=== PATIENT | male | born 1955 | race Caucasian/White ===

== ENCOUNTER 2016-07-31 16:01 | Inpatient (IN) | payer OTHER ==
--- NOTE | ~2016-07-31 | HP ---
History And Physical [address] [place]. [address] NAME: TORITO TERRELL : 55 STATUS : ADM IN [facility]#: [id number] AGE: 61 ADM/REG DATE : 07/31/16 MR#: [id number] REPORT SERV DATE: 07/31/16 DICTATED BY: MICHAEL STARKS DATE: 07/31/16 REPORT STATUS : Draft TRANSCRIBED BY: MODL DATE: 07/31/16 DATE OF ADMISSION: 07/31/2016 The patient transferred from [facility] with cardiac arrest. HISTORY OF PRESENT ILLNESS: The patient was apparently at home, had loss of consciousness. By the ER doctor's report, the patient had bystander CPR and EMS was activated. He had CPR for about 10 minutes before EMS arrived. Then he was given epinephrine, but the initial rhythm is unclear at this point, but did have return of spontaneous circulation. At one point, the patient developed a wide-complex tachycardia that appears to be consistent with a ventricular tachycardia rate of 158 beats per minute. He received a shock and was intubated. He was transferred from [facility] here for evaluation. He arrives on dopamine at 20 mcg/minute with a systolic blood pressure of approximately 100. The bedside echocardiography demonstrates cardiomyopathy. PAST MEDICAL HISTORY: Dilated cardiomyopathy with an ejection fraction of 35% to 45% by an echo March 2016, COPD, smoker, apparently on home oxygen. PRESENT MEDICATIONS: Albuterol, cetirizine fluticasone, furosemide, lorazepam, naproxen, potassium, sildenafil, tiotropium, Zantac, tramadol, trazodone. Other past medical history is anxiety. SOCIAL HISTORY: Ongoing smoking. FAMILY HISTORY: Unable to be comprehensively obtained. REVIEW OF SYSTEMS: Unable to be comprehensively obtained. PHYSICAL EXAMINATION: VITAL SIGNS: Heart rate 112 beats per minute, blood pressure 100 to 105 systolic over 70 to 75 diastolic, respiratory rate is 14, breathing with ventilator. GENERAL: Appears stated age, no distress. EYES: Sclerae anicteric, no arcus senilis. MOUTH: Oral mucosa moist, lips acyanotic. NECK: Jugular venous pressure normal, no carotid bruits. LUNGS: Have diffusely diminished breath sounds. Scattered rhonchi. CARDIAC: Irregular rhythm. Heart sounds somewhat distant. ABDOMEN: Protuberant, but soft. EXTREMITIES: No edema. SKIN: Warm and dry. NEURO/PSYCH: Sedated. STUDIES: ECG is sinus tachycardia 104 beats per minute with an inferior infarct pattern and poor R-wave progression. History And Physical [address] [address] NAME: TORITO TERRELL : 55 STATUS : ADM IN [facility]#: [id number] AGE: 61 ADM/REG DATE : 07/31/16 MR#: [id number] REPORT SERV DATE: 07/31/16 DICTATED BY: MICHAEL STARKS DATE: 07/31/16 REPORT STATUS : Draft TRANSCRIBED BY: SAMRI DATE: 07/31/16 IMPRESSIONS: 1. Kqk-gv-zfndahxa cardiac arrest. 2. Dilated cardiomyopathy. 3. Evidence of inferior infarct on ECG as well as possible anterior infarct. RECOMMENDATION: Respiratory ventilatory support. Blood pressure support. Obtain echocardiogram. Follow neuro status. Consider coronary arteriography. I have discussed this with the invasive doctor. DONA/SAMIR Michael Starks M.D. / [id number] CC: Michael Starks M.D.
--- NOTE | ~2016-07-31 | EEG ---
Electroencephalogram [address] [place]. [address] NAME: TORITO TERRELL : 55 STATUS : ADM IN PAT#: [id number] AGE: 61 ADM/REG DATE : 07/31/16 MR#: [id number] REPORT SERV DATE: 08/04/16 DICTATED BY: CHASE SURESH DATE: 08/04/16 REPORT STATUS : Draft TRANSCRIBED BY: MODL DATE: 08/04/16 EEG NUMBER: [id number]. REASON FOR EE. Status post cardiopulmonary arrest. 2. Status epilepticus. 23 surface electrodes, 10-20 international placement was used. The patient was noted to be unresponsive-comatose. Continuous markedly abnormal activity was noted throughout the EEG recording. Paroxysmal high voltage spike and sharp activity, polyspike activity, and spike and slow wave activity was seen continuously. Bilaterally synchronous high voltage paroxysmal epileptiform discharges were most prominent in the anterior head regions. Biphasic and triphasic configuration waveforms were also noted. Intermittent burst suppression pattern was seen. As compared to previous study done on 08/02/2016, there was no significant change of the patient's EEG. Despite four anticonvulsants, the patient continues to have markedly abnormal EEG. Medications used were fosphenytoin, Depakote, Keppra and Vimpat in appropriate loading doses and maintenance doses. IMPRESSION: MARKEDLY ABNORMAL EEG CHARACTERIZED BY PRESENCE OF CONTINUOUS STATUS EPILEPTICUS. 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 PROGNOSIS IS POOR. CLINICAL CORRELATION IS RECOMMENDED. MALCOLM/SAMIR Chase Suresh MD / [id number] CC: Brittany Ramirez MD
--- NOTE | ~2016-07-31 | DS ---
Discharge Summary [address] [place]. [address] NAME: TORITO TERRELL : 55 STATUS : DIS IN PAT#: [id number] AGE: 61 ADM/REG DATE : 07/31/16 MR#: [id number] REPORT SERV DATE: 08/13/16 DICTATED BY: MICHAEL FOURNIER DATE: 08/12/16 REPORT STATUS : Draft TRANSCRIBED BY: MODL DATE: 08/12/16 Data Collection from hospitalization DISCHARGE DIAGNOSES: 1. Gbc-zq-cthhtifj cardiac arrest. 2. Seizure activity. 3. Ischemic cardiomyopathy/cardiogenic shock. 4. Acute kidney injury. 5. Respiratory failure. 6. DNR code status. 7. Tobacco use. CONSULTATIONS: 1. Irvin Heard M.D. 2. Dante Jennings MD. 3. Kevon Castle M.D. PROCEDURES: 1. Cardiac catheterization, 07/31/2016. 2. Electroencephalogram, 08/02/2016. 3. Electroencephalogram 08/03/2016. DISPOSITION: [facility]; [place], [place]. HOSPITAL COURSE: This is a 61-year-old man, who was transferred from [facility] with cardiac arrest. Apparently, the patient was at home and had loss of consciousness. The patient had bystander CPR and EMS was activated. The patient underwent CPR for about 10 minutes before EMS arrived. He was being given epinephrine, but the initial rhythm was unclear at this point, but he did have return of spontaneous circulation. At one point, the patient developed wide-complex tachycardia that appeared to be consistent with ventricular tachycardia at a rate of 158 beats per minute. He received a shock and was intubated. He was transferred from [facility] here for evaluation. He arrived on dopamine and had a systolic blood pressure of approximately 100. Bedside echocardiography demonstrated cardiomyopathy. He was admitted to the hospital at this time for further evaluation and treatment. Upon admission, EKG revealed sinus tachycardia at 104 beats per minute with an inferior infarct pattern and poor R-wave progression. Respiratory ventilatory support was being provided as well as blood pressure support. We would obtain an echocardiogram. We would consider coronary arteriography. The patient was seen by Dr. Irvin Heard. He was going to continue to monitor the ventilator, a PICC line was going to be placed, as well as possible arterial line. The patient had decreased breath sounds and occasional wheeze at this time. He was orally intubated. He does have a history of asthma. He was taken to the cardiac landscaping and groundskeeping laborer where he underwent the above-mentioned procedure by Dr. Nahum Gonzalez, he tolerated this well, and there were no complications. A PICC line was inserted. The patient was felt to have respiratory failure and cardiogenic shock. Levophed was continued. The following day, the patient remained intubated and unresponsive. Telemetry revealed sinus rhythm. Catheterization had revealed ejection fraction of 15% and three-vessel Discharge Summary [address] [address] NAME: TORITO TERRELL : 55 STATUS : DIS IN PAT#: [id number] AGE: 61 ADM/REG DATE : 07/31/16 MR#: [id number] REPORT SERV DATE: 08/13/16 DICTATED BY: MICHAEL FOURNIER DATE: 08/12/16 REPORT STATUS : Draft TRANSCRIBED BY: SAMIR DATE: 08/12/16 occlusion. The patient does have ischemic cardiomyopathy. He was seen in consultation by Dr. Dante Jennings regarding anoxic encephalopathy, myoclonic and seizure-like activity. Overnight, he had been placed on mild propofol drip secondary to myoclonic-like jerking, especially in the bilateral upper extremities. Since then, the patient had no significant response, occasional eye blinking was noted, but no opening. At the time of evaluation, there was no spontaneous movement of upper or lower extremities. In addition, the patient was restarted on Levophed since early that morning secondary to blood pressure issues. In addition, the patient was also found to have oliguria since hospital arrival. The patient was currently on hypothermia protocol. At 1 a.m., we would begin the rewarming process. Prognosis was currently guarded. An EEG was requested as well as a CT scan of the brain. Once the patient off the hypothermia, Keppra was going to begin for the myoclonus-like activity. No sedating medications were recommended once hypothermia protocol was over. A trial of high-dose loop diuretic was going to be performed. The patient was also seen by Dr. Kevon Castle. The patient was felt to have anuric acute kidney injury after out-of- hospital cardiac arrest resuscitation and cardiogenic shock as well as IV contrast. Creatinine level was 1.58. The ICU nurse saw bright red blood suctioned from the endotracheal tube. She also had some nonsustained ventricular tachycardia. Keppra was continued. Echocardiogram was performed. Blood cultures were pending. An electroencephalogram was performed, this was a markedly abnormal EEG characterized by the presence of continuous status epilepticus. The administration of multiple anticonvulsants attenuated the epileptiform activity to some degree, however, did not eliminate. The patient continued in a comatose state. The pattern may be consistent with post-anoxic encephalopathy damage. Repeat EEG in 24 hours was recommended. Anticonvulsants were continued as well as Depakote. On 08/03/2016, he episodically had the seizure activity, he remained unresponsive. He was felt to have apparent anoxic brain injury. Repeat EEG was performed, this was markedly abnormal characterized by the presence of continuous status epilepticus. 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 Prognosis was felt to be poor. He was having continuous seizure activity. His poor prognosis was discussed with his , who was considering DNR code status with withdrawal of care. The following day, he had had no improvement. He is now DNR code status. The patient's condition continued to decline. Comfort measures were begun. Later that evening, the patient was found without blood pressure, pulse, or respirations. He was pronounced at 10 p.m. and released to the above-mentioned home. Information collected by: Zahraa Cote I submit the above information as my discharge summary. PRASAD/SAMIR Michael Fournier M.D. / [id number] CC: Discharge Summary [address] [address] NAME: TORITO TERERLL : 55 STATUS : DIS IN [facility]#: [id number] AGE: 61 ADM/REG DATE : 07/31/16 MR#: [id number] REPORT SERV DATE: 08/13/16 DICTATED BY: MICHAEL FOURNIER DATE: 08/12/16 REPORT STATUS : Draft TRANSCRIBED BY: SAMIR DATE: 08/12/16 Michael Fournier M.D. MD Kevon Self Jr, M.D. Dante Jennings MD
--- NOTE | ~2016-07-31 | CN ---
Consultation Report [facility] [address] [place]. [address] NAME: TORITO TERRELL : 55 STATUS : ADM IN [facility]#: [id number] AGE: 61 ADM/REG DATE : 07/31/16 MR#: [id number] REPORT SERV DATE: 08/01/16 DICTATED BY: PAM HEARD DATE: 07/31/16 REPORT STATUS : Draft TRANSCRIBED BY: MODL DATE: 07/31/16 DATE OF CONSULTATION: 07/31/2016 TIME: 1630 hours. Admitted to the MICU by Cardiology. The patient is a 61-year-old white male, who had a witnessed arrest at home. CPR for 10 minutes. He was taken to a [facility], where he required defibrillation, placed on dopamine and transported here by helicopter. He was chemically paralyzed there, he is on 20 mcg of dopamine. PAST MEDICAL HISTORY: As far as is known from previous office records show past medical history for asthma, COPD, enlarged heart, and anxiety. PAST SURGICAL HISTORY: Status post appendectomy, knee surgery, right arm. SOCIAL HISTORY: He decreased smoking from two- to one-pack per day. FAMILY HISTORY: Noncontributory. IMMUNIZATION: History of noncontributory. No history of falls. ALLERGIES: NONE KNOWN. HOME MEDICATIONS: Include albuterol sulfate inhaler, aripiprazole 10 mg oral daily, lorazepam oral as needed, naproxen 500 mg oral tablet daily, Zantac 300 mg oral twice a day, sildenafil 50 mg oral as needed, Spiriva 18 mcg inhalation daily, tramadol oral, trazodone oral, Lasix 20 mg daily, KCl 10 mEq daily, cetirizine 10 mg daily, fluticasone 50, and mometasone inhalation 220. PHYSICAL EXAMINATION: VITAL SIGNS: Blood pressure 110/20 on dopamine, heart rate is 111. GENERAL: The patient is afebrile. He is chemically paralyzed. HEENT: Head is normocephalic. Orally intubated. NECK: Supple. CHEST: Decreased breath sounds. Occasional wheeze. CARDIAC: S1 and S2. PMI is displaced laterally. ABDOMEN: Soft and nontender. No masses or organomegaly. Pulses palpable. NEUROLOGIC: Could not be tested at this point in time. LABORATORY DATA: Pending. IMPRESSION: Status post cardiac arrest requiring defibrillation, now on pressors, rhythm unknown. Consultation Report [id number] [place]. [address] NAME: TORITO TERRELL : 55 STATUS : ADM IN PAT#: [id number] AGE: 61 ADM/REG DATE : 07/31/16 MR#: [id number] REPORT SERV DATE: 08/01/16 DICTATED BY: PAM HEARD DATE: 07/31/16 REPORT STATUS : Draft TRANSCRIBED BY: MODL DATE: 07/31/16 PLAN: Continue to monitor ventilator. Place PICC line, possible arterial line with Cardiology input. RP/GABRIELAL Pam Heard M.D. / [id number] CC: Michael Fournier M.D.
--- NOTE | ~2016-07-31 | EEG ---
Electroencephalogram [address] [place]. [address] NAME: TORITO TERRELL : 55 STATUS : ADM IN PAT#: [id number] AGE: 61 ADM/REG DATE : 07/31/16 MR#: [id number] REPORT SERV DATE: 08/03/16 DICTATED BY: CHASE SURESH DATE: 08/03/16 REPORT STATUS : Draft TRANSCRIBED BY: MODRubén DATE: 08/03/16 LOCATION OF THE PATIENT: MICU bed #9. REQUESTING PHYSICIANS: Keena Mary M.D. and Dr. Chase Suresh M.D. INTERPRETING PHYSICIAN: Chase Suresh M.D., Neurology. REASON FOR EEG: Status post cardiopulmonary arrest, unresponsiveness. 23-surface electrodes, 10 to 20 international placement was used. The patient was noted to be comatose during the entire study. Total of 2 hours and 9 minutes of recording was obtained. The EEG was monitored visually at the patient's bedside. The responsiveness to different anticonvulsants was monitored. At the beginning of the recording, continuous epileptiform activity was observed. This activity consisted of spikes and poly spikes and slow wave forms of approximately 4-5 cycles per second. This epileptiform activity was of high voltage involving all the leads utilized in anterior and posterior and central portions. The patient did not respond to verbal or painful stimuli. No change was monitored. The patient appeared motionless, intermittently myoclonic, fine jerking was observed. The patient's pupils were dilated. The patient was given 2000 mg of IV Keppra and 1500 mg of IV Depakote and 2 mg of IV Ativan. The epileptiform activity appeared to show decrease in frequency and amplitude, however, abnormal activity continued throughout the recording despite the use of IV anticonvulsants. The loading dose of fosphenytoin was added monitoring the patient's blood pressure and response. The patient was on propofol, which was intermittently lowered and discontinued. No significant changes were observed. Intermittent burst suppression pattern was also seen. The burst suppression pattern lasted between 1 and 3 seconds. No significant asymmetry of cerebral activity was noted. The patient remained comatose throughout this study. IMPRESSION: MARKEDLY ABNORMAL EEG CHARACTERIZED BY PRESENCE OF CONTINUOUS STATUS EPILEPTICUS. THE ADMINISTRATION OF MULTIPLE ANTICONVULSANTS ATTENUATED THE EPILEPTIFORM ACTIVITY TO SOME DEGREE, HOWEVER, DID NOT ELIMINATE. THE PATIENT CONTINUED IN THE COMATOSE STATE. PATTERN MAY BE CONSISTENT WITH POSTANOXIC ENCEPHALOPATHY DAMAGE. REPEAT EEG IN 24 HOURS IS RECOMMENDED. MALCOLM/SAMIR Chase Suresh MD / [id number] CC: Brittany Ramirez MD
--- NOTE | ~2016-07-31 | CN ---
Consultation Report [facility] [address] [place]. [address] NAME: TORITO TERRELL : 55 STATUS : ADM IN PAT#: [id number] AGE: 61 ADM/REG DATE : 07/31/16 MR#: [id number] REPORT SERV DATE: 08/01/16 DICTATED BY: DATE: REPORT STATUS : Draft TRANSCRIBED BY: MODL DATE: 08/01/16 NEUROLOGY CONSULTATION DATE OF CONSULTATION: 08/01/2016 REASON FOR CONSULT: Anoxic encephalopathy, myoclonus, seizure-like activity. HISTORY OF PRESENT ILLNESS: This is a 61-year-old male, who presented to [facility] as an outside hospital transfer, secondary to cardiac arrest. The patient was noted to have a cardiac arrest by family member with by bystander CPR for about 10 minutes prior to the EMS. The patient received epinephrine, as well as the noted to have wide-complex tachycardia concerning for ventricular tachycardia, where the patient received electric shock. The patient was subsequently intubated and transferred to [facility] for evaluation, with the patient placed on pressors and transferred to [facility] for further management. The patient does have an echocardiogram at bedside upon arrival which demonstrated cardiomyopathy. Overnight, the patient was placed on mild propofol drip, secondary to myoclonic like jerking, especially in the bilateral upper extremity. The patient since then was noted to have no significant response, occasional eye blinking was noted, but no eye opening. At the time of evaluation, no spontaneous movement of upper or lower extremities. The patient, in addition was restarted on Levophed since early this morning, secondary to blood pressure issue. In addition, the patient was also noted to have oliguria since the hospital arrival. Prior to the hospitalization no reports of recent illness was noted. The patient is currently on the hypothermia protocol which will be stopped at 01:00 a.m. on 08/02/2016, the patient will start rewarming process. PAST MEDICAL HISTORY: Significant for cardiomyopathy with EF of 35% to 45% by echo in March 2016. The patient also has had history of COPD, continued to smoke, and was noted to be on home oxygen. The patient in addition was also noted to have a history of anxiety in the past. SOCIAL HISTORY: He was noted to have ongoing smoking per medical record. No report of alcohol or illicit drug usage was noted. FAMILY HISTORY: Unable to be obtained, secondary to the patient's current mental status. REVIEW OF SYSTEMS: Unable to be obtained, secondary to the patient's current mental status. CURRENT MEDICATION: Consists of a propofol drip, as well as the Levophed drip, Protonix. The patient received some muscle relaxer prior to hospital transfer for helicopter ride, but after hospital arrival the patient has not received any paralytics or muscle relaxant. PHYSICAL EXAMINATION: VITAL SIGNS: At the time of evaluation, the patient overnight was noted to have vital signs Consultation Report [address] [place]. [address] NAME: TORITO TERRELL : 55 STATUS : ADM IN [facility]#: [id number] AGE: 61 ADM/REG DATE : 07/31/16 MR#: [id number] REPORT SERV DATE: 08/01/16 DICTATED BY: DATE: REPORT STATUS : Draft TRANSCRIBED BY: MODL DATE: 08/01/16 with T-max of 96.8, heart rate of 78 to 106, respiration of 12 to 34, and blood pressure of 78 to 124/52 to 91. GENERAL: The patient is well-developed, well-nourished, in no acute distress. CARDIOVASCULAR: Regular rate and rhythm. No carotid bruits were otherwise noted. PULMONARY: Clear to auscultation bilaterally. NEUROLOGIC: The patient is comatose, intubated, nonverbal, and not following commands. Propofol sedation was on during the evaluation. Cranial nerves 2 through 12, pupils equal, round, sluggishly, reactive. At the time of evaluation no horizontal eye movement. No blink to threat. No corneal response was otherwise noted. No response to painful stimulation at time of evaluation. The patient does not demonstrate significant gag reflex at the time of evaluation. The patient otherwise demonstrated no clear myoclonus jerk on evaluation. No spontaneous upper or lower extremity movement was observed. The patient does demonstrate some reflexes in the right upper extremity. Otherwise, and no grimace, withdrawal, or posturing to noxious stimulation in all four extremities. Gait and cerebellar examination was unable to be evaluated, secondary to the patient's mental status. LABORATORY DATA: At the time of evaluation, the patient was noted to have white blood cell count of 12.3, hemoglobin of 12.4, hematocrit of 35.3, and platelet count of 182. Chemistry panel; sodium 134, potassium of 4.4, chloride 109.8, bicarb 24, BUN of 11, creatinine of 1.58, glucose of 142, calcium of 8.2, magnesium 1.8. Troponin of 2.72. At time of evaluation, serum ABG this morning demonstrated pH of 7.39, pCO2 of 40, PO2 of 70, bicarb of 23.7, O2 saturation of 93.6. No neuro imaging was otherwise obtained at the time of evaluation. IMPRESSION: Anoxic encephalopathy. The patient is currently undergoing hypothermia protocol, with the patient noted to have myoclonus like activity overnight, and started on mild propofol drip. The patient in addition was also on Levophed for hypotension, secondary to presence of myoclonus after initial cardiac event. Prognosis is currently guarded. We will obtain EEG, as well as CT scan of the brain once the patient is off the hypothermia. Meanwhile, we will start the patient on Keppra 1000 mg IV b.i.d. for myoclonus like activity. We will recommend no sedating medications once hypothermia protocol is over. RECOMMENDATION: 1. Please keep the patient under no sedation after hypothermia protocol. 2. We will start the patient on Keppra 1000 mg IV b.i.d. 3. EEG to be performed on 08/02/2016. 4. CT scan of the brain to be performed on 08/02/2016. 5. Prognosis guarded. [facility]/MODL Dante Jennings MD Consultation Report [address] [address] NAME: TORITO TERRELL : 55 STATUS : ADM IN [facility]#: [id number] AGE: 61 ADM/REG DATE : 07/31/16 MR#: [id number] REPORT SERV DATE: 08/01/16 DICTATED BY: DATE: REPORT STATUS : Draft TRANSCRIBED BY: MODL DATE: 08/01/16 / [id number] CC: Brittany Ramirez MD
[2016-07-31 16:39] LABS: BASOPHILS 0.1 %; BASOPHILS ABSOLUTE 0.01 10/3/uL (0.0-0.16); EOSINOPHILS 0.5 %; EOSINOPHILS ABSOLUTE 0.04 10/3/uL (0.0-0.53); HEMATOCRIT 38.2 % (40.0-51.0); HEMOGLOBIN 13.4 g/dL (13.6-17.8); IMMATURE GRANULOCYTES 0.8 %; IMMATURE GRANULOCYTES ABSOLUTE 0.07 10/3/uL (0.0-0.11); LYMPHOCYTES 9.7 %; LYMPHOCYTES ABSOLUTE 0.81 10/3/uL (0.67-4.30); MANUAL DIFF NO %; MEAN CORPUS HGB CONC 35.1 g/dL (32.0-36.0); MEAN CORPUSCULAR HEMOGLOB 30.9 pg (26.0-34.0); MONOCYTES 1.9 %; MONOCYTES ABSOLUTE 0.16 10/3/uL (0.21-1.20); NEUTROPHILS ABSOLUTE 7.27 10/3/uL (2.02-8.40); PLATELET COUNT 169 10/3/uL (150-400); RBC DISTRIBUTION WIDTH 14.3 % (12.0-16.0); RED CELL COUNT 4.34 10/6/uL (4.7-6.1); WHITE BLOOD CELLS 8.4 10/3/uL (4.5-10.5)
[2016-07-31 16:55] LABS: INTERNATIONAL NORMAL RATI 1.6 UNITS (-); PROTIME (NOT ORD) 18.7 SEC (12.0-14.5)
[2016-07-31 16:56] LABS: A/G RATIO 1.4 (0.7-1.9); ALBUMIN 3.7 G/DL (3.5-5.0); ALKALINE PHOSPHATASE 288 U/L (45-117); BUN (BLOOD UREA NITROGEN) 8 MG/DL (6-23); CALCIUM, SERUM 8.1 MG/DL (8.5-10.4); CHLORIDE, SERUM 95 MMOL/L (96-112); CO2 (CARBON DIOXIDE) 27 MMOL/L (24-34); CPK 163 U/L (0-200); CREATININE 1.37 MG/DL (0.70-1.30); GFR AFRICAN AMERICAN 64 ML/MIN (>=60); GFR NON AFRICAN AMERICAN 55 ML/MIN (>=60); GLOBULIN 2.7 G/DL (2.5-4.1); GLUCOSE, SERUM 134 MG/DL (60-99); PHOSPHORUS, SERUM 3.6 MG/DL (2.5-4.5); SGOT(AST) 62 U/L (5-40); SGPT(ALT) 49 U/L (5-65); SODIUM, SERUM 136 MMOL/L (135-148); TOTAL BILIRUBIN 1.2 MG/DL (0-1.2); TOTAL PROTEIN 6.4 G/DL (6.0-8.5)
[2016-07-31 17:25] LABS: PROCALCITONIN 0.05 ng/mL (<0.5)
[2016-07-31 17:28] LABS: ALLENS TEST Pos; BE (BASE EXCESS) 1.4 MEQ/L (0 +/- 2.5); CARBOXYHEMOGLOBIN 0.9 % (0-3); HEMOBLOGIN CONTENT 13.5 G/DL (14-18); INSTRUMENT SERIAL # 8083; METHEMOGLOBIN 0.4 % (0-3); O2 CONTENT 19.4 VOL% (18-24); PCO2 (CO2 TENSION) 41 MMHG (35-45); PO2 (O2 TENSION) 302 MMHG (79-93); SAMPLE Arterial; TIDAL VOLUME 600 ML; pH 7.42 (7.37-7.43)
[2016-07-31] MEDS ORDERED: NAP500 PO (19:13)
[2016-07-31] MEDS ORDERED: ZANTAC300 MG PO (19:14)
[2016-07-31] MEDS ORDERED: SPIRIVA INH (19:16)
[2016-07-31] MEDS ORDERED: VENTOLIN HFA INH (19:18)
[2016-07-31] MEDS ORDERED: ABILIFY10 PO (19:19)
[2016-07-31] MEDS ORDERED: VIAGRA50 MG (19:19)
[2016-07-31] MEDS ORDERED: LORAZEPAM (19:20)
[2016-07-31] MEDS ORDERED: TRAMADOL (19:21)
[2016-07-31] MEDS ORDERED: TRAZODONE (19:22)
[2016-07-31 19:25] LABS: TROPONIN I 0.26 NG/ML (<0.05)
[2016-08-01 03:21] LABS: CARBOXYHEMOGLOBIN 0.8 % (0-3); HCO3 (ACTUAL BICARBONATE) 23.7 MEQ/L (23-27); INSTRUMENT SERIAL # 8083; METHEMOGLOBIN 0.2 % (0-3); PCO2 (CO2 TENSION) 40 MMHG (35-45); PO2 (O2 TENSION) 70 MMHG (79-93); pH 7.39 (7.37-7.43)
[2016-08-01 03:22] LABS: HEMOBLOGIN CONTENT 13.2 G/DL (14-18); MODE CMV; O2 CONTENT 17.2 VOL% (18-24); OPERATOR ID 16503; SAMPLE Arterial; TIDAL VOLUME 600 ML
[2016-08-01 05:14] LABS: BASOPHILS 0.1 %; BASOPHILS ABSOLUTE 0.01 10/3/uL (0.0-0.16); EOSINOPHILS 0 %; HEMATOCRIT 35.3 % (40.0-51.0); HEMOGLOBIN 12.4 g/dL (13.6-17.8); IMMATURE GRANULOCYTES 0.3 %; IMMATURE GRANULOCYTES ABSOLUTE 0.04 10/3/uL (0.0-0.11); LYMPHOCYTES 5.5 %; LYMPHOCYTES ABSOLUTE 0.68 10/3/uL (0.67-4.30); MEAN CORPUS HGB CONC 35.1 g/dL (32.0-36.0); MEAN CORPUSCULAR HEMOGLOB 30.8 pg (26.0-34.0); MEAN CORPUSCULAR VOLUME 87.6 fL (80-100); MEAN PLATELET VOLUME 9.9 fL (9.2-13.0); MONOCYTES 5.3 %; MONOCYTES ABSOLUTE 0.65 10/3/uL (0.21-1.20); NEUTROPHILS 88.8 %; NEUTROPHILS ABSOLUTE 10.93 10/3/uL (2.02-8.40); PLATELET COUNT 182 10/3/uL (150-400); RBC DISTRIBUTION WIDTH 14.7 % (12.0-16.0); RED CELL COUNT 4.03 10/6/uL (4.7-6.1)
[2016-08-01 05:21] LABS: MANUAL DIFF NO %; WHITE BLOOD CELLS 12.3 10/3/uL (4.5-10.5)
[2016-08-01 05:22] LABS: BUN (BLOOD UREA NITROGEN) 11 MG/DL (6-23); CALCIUM, SERUM 8.2 MG/DL (8.5-10.4); CHLORIDE, SERUM 98 MMOL/L (96-112); CO2 (CARBON DIOXIDE) 24 MMOL/L (24-34); CREATININE 1.58 MG/DL (0.70-1.30); GFR AFRICAN AMERICAN 54 ML/MIN (>=60); GFR NON AFRICAN AMERICAN 47 ML/MIN (>=60); GLUCOSE, SERUM 142 MG/DL (60-99); PHOSPHORUS, SERUM 4.4 MG/DL (2.5-4.5); POTASSIUM, SERUM 4.4 MMOL/L (3.5-5.3); SODIUM, SERUM 134 MMOL/L (135-148)
[2016-08-01 06:29] LABS: A/G RATIO 1.1 (0.7-1.9); ALBUMIN 3.1 G/DL (3.5-5.0); CPK (IF ELEVATED MB BANDS) 260 U/L (0-200); DIRECT BILIRUBIN 0.5 MG/DL (0.0-0.4); GLOBULIN 2.7 G/DL (2.5-4.1); INDIRECT BILIRUBIN(NOT ORDER) 0.6 MG/DL (0.1-0.9); SGOT(AST) 54 U/L (5-40); SGPT(ALT) 39 U/L (5-65); TOTAL BILIRUBIN 1.1 MG/DL (0-1.2); TOTAL PROTEIN 5.8 G/DL (6.0-8.5)
[2016-08-01 06:31] LABS: ALKALINE PHOSPHATASE 225 U/L (45-117); TROPONIN I 2.72 NG/ML (<0.05)
[2016-08-01 06:43] LABS: CK-MB 17.1 NG/ML
[2016-08-01 06:44] LABS: CKMB INDEX (NOT ORD) 6.6
[2016-08-01 16:25] LABS: BASOPHILS 0 %; EOSINOPHILS 0 %; HEMATOCRIT 35.4 % (40.0-51.0); HEMOGLOBIN 12.4 g/dL (13.6-17.8); IMMATURE GRANULOCYTES 0.3 %; IMMATURE GRANULOCYTES ABSOLUTE 0.04 10/3/uL (0.0-0.11); LYMPHOCYTES 6.8 %; LYMPHOCYTES ABSOLUTE 1.06 10/3/uL (0.67-4.30); MANUAL DIFF NO %; MEAN CORPUSCULAR HEMOGLOB 30.3 pg (26.0-34.0); MEAN CORPUSCULAR VOLUME 86.6 fL (80-100); MEAN PLATELET VOLUME 10.1 fL (9.2-13.0); MONOCYTES ABSOLUTE 0.62 10/3/uL (0.21-1.20); NEUTROPHILS 88.9 %; NEUTROPHILS ABSOLUTE 13.81 10/3/uL (2.02-8.40); PLATELET COUNT 124 10/3/uL (150-400); RBC DISTRIBUTION WIDTH 14.7 % (12.0-16.0); RED CELL COUNT 4.09 10/6/uL (4.7-6.1); WHITE BLOOD CELLS 15.5 10/3/uL (4.5-10.5)
[2016-08-01 16:38] LABS: BUN (BLOOD UREA NITROGEN) 12 MG/DL (6-23); CALCIUM, SERUM 7.9 MG/DL (8.5-10.4); CHLORIDE, SERUM 98 MMOL/L (96-112); CO2 (CARBON DIOXIDE) 25 MMOL/L (24-34); CREATININE 1.43 MG/DL (0.70-1.30); GFR AFRICAN AMERICAN 61 ML/MIN (>=60); GFR NON AFRICAN AMERICAN 52 ML/MIN (>=60); GLUCOSE, SERUM 123 MG/DL (60-99); PHOSPHORUS, SERUM 4.2 MG/DL (2.5-4.5); POTASSIUM, SERUM 3.9 MMOL/L (3.5-5.3); SODIUM, SERUM 134 MMOL/L (135-148)
[2016-08-01 19:43] LABS: POTASSIUM, SERUM 3.6 MMOL/L (3.5-5.3)
[2016-08-01 23:26] LABS: HEMATOCRIT 35.5 % (40.0-51.0); HEMOGLOBIN 12.5 g/dL (13.6-17.8)
[2016-08-01 23:36] LABS: POTASSIUM, SERUM 3.3 MMOL/L (3.5-5.3)
[2016-08-02 02:58] LABS: BASOPHILS 0.2 %; BASOPHILS ABSOLUTE 0.02 10/3/uL (0.0-0.16); EOSINOPHILS 0.1 %; EOSINOPHILS ABSOLUTE 0.01 10/3/uL (0.0-0.53); HEMATOCRIT 35.9 % (40.0-51.0); HEMOGLOBIN 12.6 g/dL (13.6-17.8); IMMATURE GRANULOCYTES 0.4 %; IMMATURE GRANULOCYTES ABSOLUTE 0.04 10/3/uL (0.0-0.11); LYMPHOCYTES 13.8 %; LYMPHOCYTES ABSOLUTE 1.58 10/3/uL (0.67-4.30); MANUAL DIFF NO %; MEAN CORPUS HGB CONC 35.1 g/dL (32.0-36.0); MEAN CORPUSCULAR HEMOGLOB 30.4 pg (26.0-34.0); MEAN CORPUSCULAR VOLUME 86.7 fL (80-100); MEAN PLATELET VOLUME 10.7 fL (9.2-13.0); MONOCYTES 2.6 %; NEUTROPHILS 82.9 %; NEUTROPHILS ABSOLUTE 9.46 10/3/uL (2.02-8.40); PLATELET COUNT 112 10/3/uL (150-400); RBC DISTRIBUTION WIDTH 14.3 % (12.0-16.0); RED CELL COUNT 4.14 10/6/uL (4.7-6.1); WHITE BLOOD CELLS 11.4 10/3/uL (4.5-10.5)
[2016-08-02 03:13] LABS: ALBUMIN 2.9 G/DL (3.5-5.0); BUN (BLOOD UREA NITROGEN) 12 MG/DL (6-23); CALCIUM, SERUM 7.8 MG/DL (8.5-10.4); CHLORIDE, SERUM 95 MMOL/L (96-112); CREATININE 1.41 MG/DL (0.70-1.30); GFR AFRICAN AMERICAN 62 ML/MIN (>=60); GFR NON AFRICAN AMERICAN 53 ML/MIN (>=60); GLUCOSE, SERUM 115 MG/DL (60-99); PHOSPHORUS, SERUM 4.3 MG/DL (2.5-4.5); POTASSIUM, SERUM 3.3 MMOL/L (3.5-5.3); SGOT(AST) 53 U/L (5-40); SGPT(ALT) 41 U/L (5-65); SODIUM, SERUM 136 MMOL/L (135-148); TOTAL BILIRUBIN 1.5 MG/DL (0-1.2); TOTAL PROTEIN 5.7 G/DL (6.0-8.5)
[2016-08-02 03:18] LABS: ALKALINE PHOSPHATASE 209 U/L (45-117); CO2 (CARBON DIOXIDE) 30 MMOL/L (24-34); DIRECT BILIRUBIN 0.8 MG/DL (0.0-0.4); INDIRECT BILIRUBIN(NOT ORDER) 0.7 MG/DL (0.1-0.9)
[2016-08-02 03:48] LABS: CARBOXYHEMOGLOBIN 0.6 % (0-3); HCO3 (ACTUAL BICARBONATE) 30.4 MEQ/L (23-27); INSTRUMENT SERIAL # 8083; METHEMOGLOBIN 0.4 % (0-3); MODE CMV; O2 CONTENT 17.3 VOL% (18-24); OPERATOR ID 16469; PCO2 (CO2 TENSION) 43 MMHG (35-45); PO2 (O2 TENSION) 74 MMHG (79-93); SAMPLE Arterial; TIDAL VOLUME 500 ML; pH 7.47 (7.37-7.43)
[2016-08-02 14:43] LABS: BASOPHILS 0.3 %; BASOPHILS ABSOLUTE 0.03 10/3/uL (0.0-0.16); EOSINOPHILS 0.7 %; EOSINOPHILS ABSOLUTE 0.07 10/3/uL (0.0-0.53); HEMATOCRIT 32.8 % (40.0-51.0); HEMOGLOBIN 11.5 g/dL (13.6-17.8); IMMATURE GRANULOCYTES 0.2 %; IMMATURE GRANULOCYTES ABSOLUTE 0.02 10/3/uL (0.0-0.11); LYMPHOCYTES 24.8 %; LYMPHOCYTES ABSOLUTE 2.53 10/3/uL (0.67-4.30); MEAN CORPUS HGB CONC 35.1 g/dL (32.0-36.0); MEAN CORPUSCULAR HEMOGLOB 30.1 pg (26.0-34.0); MEAN CORPUSCULAR VOLUME 85.9 fL (80-100); MEAN PLATELET VOLUME 11.2 fL (9.2-13.0); MONOCYTES 5.5 %; MONOCYTES ABSOLUTE 0.56 10/3/uL (0.21-1.20); NEUTROPHILS 68.5 %; NEUTROPHILS ABSOLUTE 6.99 10/3/uL (2.02-8.40); PLATELET COUNT 116 10/3/uL (150-400); RBC DISTRIBUTION WIDTH 14.7 % (12.0-16.0); RED CELL COUNT 3.82 10/6/uL (4.7-6.1); WHITE BLOOD CELLS 10.2 10/3/uL (4.5-10.5)
[2016-08-02 14:44] LABS: MANUAL DIFF NO %
[2016-08-02 14:48] LABS: BUN (BLOOD UREA NITROGEN) 10 MG/DL (6-23); CALCIUM, SERUM 7.7 MG/DL (8.5-10.4); CHLORIDE, SERUM 92 MMOL/L (96-112); CO2 (CARBON DIOXIDE) 28 MMOL/L (24-34); CREATININE 1.17 MG/DL (0.70-1.30); GFR AFRICAN AMERICAN 78 ML/MIN (>=60); GFR NON AFRICAN AMERICAN 67 ML/MIN (>=60); GLUCOSE, SERUM 144 MG/DL (60-99); PHOSPHORUS, SERUM 4.6 MG/DL (2.5-4.5); POTASSIUM, SERUM 4.1 MMOL/L (3.5-5.3); SODIUM, SERUM 131 MMOL/L (135-148)
[2016-08-02 15:37] LABS: DILANTIN (PHENYTOIN) 67.7 MCG/ML (10.0-20.0)
[2016-08-02 21:53] LABS: POTASSIUM, SERUM 3.8 MMOL/L (3.5-5.3)
[2016-08-03 02:41] LABS: BASOPHILS 0.3 %; BASOPHILS ABSOLUTE 0.02 10/3/uL (0.0-0.16); EOSINOPHILS 0.8 %; EOSINOPHILS ABSOLUTE 0.06 10/3/uL (0.0-0.53); HEMATOCRIT 31.7 % (40.0-51.0); HEMOGLOBIN 11.1 g/dL (13.6-17.8); IMMATURE GRANULOCYTES 0.3 %; IMMATURE GRANULOCYTES ABSOLUTE 0.02 10/3/uL (0.0-0.11); LYMPHOCYTES 28.1 %; LYMPHOCYTES ABSOLUTE 2.09 10/3/uL (0.67-4.30); MEAN CORPUSCULAR HEMOGLOB 30.1 pg (26.0-34.0); MEAN CORPUSCULAR VOLUME 85.9 fL (80-100); MEAN PLATELET VOLUME 10.6 fL (9.2-13.0); MONOCYTES ABSOLUTE 0.45 10/3/uL (0.21-1.20); NEUTROPHILS 64.5 %; PLATELET COUNT 110 10/3/uL (150-400); RBC DISTRIBUTION WIDTH 14.8 % (12.0-16.0); RED CELL COUNT 3.69 10/6/uL (4.7-6.1); WHITE BLOOD CELLS 7.4 10/3/uL (4.5-10.5)
[2016-08-03 02:44] LABS: MANUAL DIFF NO %
[2016-08-03 02:59] LABS: A/G RATIO 0.9 (0.7-1.9); ALBUMIN 2.4 G/DL (3.5-5.0); BUN (BLOOD UREA NITROGEN) 10 MG/DL (6-23); CALCIUM, SERUM 7.6 MG/DL (8.5-10.4); CHLORIDE, SERUM 95 MMOL/L (96-112); CO2 (CARBON DIOXIDE) 30 MMOL/L (24-34); CREATININE 1.18 MG/DL (0.70-1.30); GFR AFRICAN AMERICAN 77 ML/MIN (>=60); GFR NON AFRICAN AMERICAN 66 ML/MIN (>=60); GLOBULIN 2.8 G/DL (2.5-4.1); GLUCOSE, SERUM 136 MG/DL (60-99); SGPT(ALT) 31 U/L (5-65); SODIUM, SERUM 133 MMOL/L (135-148); TOTAL PROTEIN 5.2 G/DL (6.0-8.5)
[2016-08-03 03:03] LABS: ALKALINE PHOSPHATASE 164 U/L (45-117); PHOSPHORUS, SERUM 3.2 MG/DL (2.5-4.5); POTASSIUM, SERUM 4.3 MMOL/L (3.5-5.3); SGOT(AST) 34 U/L (5-40); TOTAL BILIRUBIN 0.9 MG/DL (0-1.2)
[2016-08-04 05:30] LABS: BASOPHILS 0.2 %; BASOPHILS ABSOLUTE 0.01 10/3/uL (0.0-0.16); EOSINOPHILS 0.7 %; EOSINOPHILS ABSOLUTE 0.04 10/3/uL (0.0-0.53); HEMATOCRIT 30.8 % (40.0-51.0); HEMOGLOBIN 10.6 g/dL (13.6-17.8); IMMATURE GRANULOCYTES 0.2 %; IMMATURE GRANULOCYTES ABSOLUTE 0.01 10/3/uL (0.0-0.11); LYMPHOCYTES 26.5 %; LYMPHOCYTES ABSOLUTE 1.43 10/3/uL (0.67-4.30); MEAN CORPUS HGB CONC 34.4 g/dL (32.0-36.0); MEAN CORPUSCULAR HEMOGLOB 30.3 pg (26.0-34.0); MEAN PLATELET VOLUME 10.4 fL (9.2-13.0); MONOCYTES 8.1 %; MONOCYTES ABSOLUTE 0.44 10/3/uL (0.21-1.20); NEUTROPHILS 64.3 %; NEUTROPHILS ABSOLUTE 3.47 10/3/uL (2.02-8.40); PLATELET COUNT 85 10/3/uL (150-400); RBC DISTRIBUTION WIDTH 14.9 % (12.0-16.0); WHITE BLOOD CELLS 5.4 10/3/uL (4.5-10.5)
[2016-08-04 05:41] LABS: MANUAL DIFF NO %
[2016-08-04 05:42] LABS: ALBUMIN 2.3 G/DL (3.5-5.0); CHLORIDE, SERUM 96 MMOL/L (96-112); CO2 (CARBON DIOXIDE) 28 MMOL/L (24-34); CREATININE 0.83 MG/DL (0.70-1.30); GFR AFRICAN AMERICAN 110 ML/MIN (>=60); GFR NON AFRICAN AMERICAN 95 ML/MIN (>=60); GLUCOSE, SERUM 116 MG/DL (60-99); PHOSPHORUS, SERUM 3.5 MG/DL (2.5-4.5); POTASSIUM, SERUM 3.7 MMOL/L (3.5-5.3); SODIUM, SERUM 133 MMOL/L (135-148)
[2016-08-04 06:05] LABS: BUN (BLOOD UREA NITROGEN) 6 MG/DL (6-23)
[2016-08-04 06:06] LABS: CALCIUM, SERUM 8.4 MG/DL (8.5-10.4)
== END 2016-08-05 01:07 | disposition expired | DRG 270 ==
LOC: MIC 16:01
PROVIDERS: Internal Medicine; Internal Medicine Cardiovascular Disease; Internal Medicine Nephrology; Internal Medicine Pulmonary Disease
PROC: 4A023N7 Measurement of Cardiac Sampling and Pressure, Left Heart, Percutaneous Approach (ICD-10-PCS; principal; 2016-07-31)
PROC: 5A02210 Assistance with Cardiac Output using Balloon Pump, Continuous (ICD-10-PCS; 2016-07-31)
PROC: B2111ZZ Fluoroscopy of Multiple Coronary Arteries using Low Osmolar Contrast (ICD-10-PCS; 2016-07-31)
PROC: B2151ZZ Fluoroscopy of Left Heart using Low Osmolar Contrast (ICD-10-PCS; 2016-07-31)
PROC: 5A1945Z Respiratory Ventilation, 24-96 Consecutive Hours (ICD-10-PCS; 2016-07-31)
PROC: 0BH17EZ Insertion of Endotracheal Airway into Trachea, Via Natural or Artificial Opening (ICD-10-PCS; 2016-07-31)
DX: I21.09 ST elevation (STEMI) myocardial infarction involving other coronary artery of anterior wall (principal); J96.01 Acute respiratory failure with hypoxia; I21.19 ST elevation (STEMI) myocardial infarction involving other coronary artery of inferior wall; N17.0 Acute kidney failure with tubular necrosis; R57.0 Cardiogenic shock; I42.0 Dilated cardiomyopathy; G93.1 Anoxic brain damage, not elsewhere classified; D61.818 Other pancytopenia; I47.2 Ventricular tachycardia; I25.10 Atherosclerotic heart disease of native coronary artery without angina pectoris; J44.9 Chronic obstructive pulmonary disease, unspecified; F17.210 Nicotine dependence, cigarettes, uncomplicated; Z99.81 Dependence on supplemental oxygen; F42.9 Obsessive-compulsive disorder, unspecified; Z79.899 Other long term (current) drug therapy; G25.3 Myoclonus; Z66 Do not resuscitate; Z51.5 Encounter for palliative care
CPT/HCPCS: 31720; 33967; 36569; 36600; 71010; 80048; 80053; 80069; 80076; 80185; 82248; 82330; 82550; 82553; 82565; 82803; 82805; 82947; 83605; 83735; 83880; 84100; 84132; 84145; 84295; 84484; 85014; 85018; 85025; 85610; 85730; 87040; 87641; 93005; 93460; 94002; 94003; 94640; 95813; 95816; 96523; A9270-GY; C1751; C1769; C1894; C8929; C9113; C9254; G0463; J0282; J1205; J1953; J2250; J3010; P9045; Q2009; Q9957; Q9967